=== PATIENT | male | born 1980 | race African-American/Black ===

== ENCOUNTER 2017-02-02 03:31 | Emergency (ER) | payer OTHER ==
[~2017-02-02] VITALS: Ht 185.4 cm; Wt 74.8 kg
[2017-02-02 03:57] VITALS: BP 105/72
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
[2017-02-02 04:04] VITALS: BP 105/72
== END 2017-02-02 04:05 | disposition home or self-care (01) ==
LOC: EDBD 03:31 → EMR 03:40
DX: S01.81XA Laceration without foreign body of other part of head, initial encounter (principal); Y04.2XXA Assault by strike against or bumped into by another person, initial encounter; Y93.9 Activity, unspecified; Y92.009 Unspecified place in unspecified non-institutional (private) residence as the place of occurrence of the external cause; Z88.6 Allergy status to analgesic agent; Z88.8 Allergy status to other drugs, medicaments and biological substances; F17.200 Nicotine dependence, unspecified, uncomplicated
CPT/HCPCS: 12052; 99284; Z7502